=== PATIENT | male | born 1975 | race Caucasian/White ===

== ENCOUNTER 2019-06-06 06:50 | Day surgery (SDC) | payer OTHER ==
[~2019-06-06 06:50] MED LIST: ACETAMINOPHEN 325 MG TABLET (FP) PO PRN; OFLOXACIN 0.3% OPHTHALMIC SOLUTION 5 ML BOTTLE OP SCH; TOBRAMYCIN/DEXAMETHASONE OPHTH. OINTMENT 1 TUBE TP ONE
[2019-06-06] MEDS ORDERED: LIDOCAINE HCL 1% EPINEPHRINE 1:200,000 30 ML VIAL (PF) ONE (07:14)
[2019-06-06] MEDS ORDERED: TETRACAINE 0.5% OPHTH SOLN 2 ML BOTTLE ONE (07:25)
[2019-06-06] MEDS ORDERED: LIDOCAINE 1%-EPI 1:100,000 30 ML MDV IJ ONE (07:42)
[2019-06-06] MEDS ORDERED: OFLOXACIN 0.3% OPHTHALMIC SOLUTION 5 ML BOTTLE ONE (10:25)
[2019-06-06] MEDS ORDERED: BUPIVACAINE HCL/PF 0.75% 10 ML VIAL ONE (12:17)
[2019-06-06] MEDS ORDERED: LIDOCAINE HCL/PF 1% SDV 5ML VIAL ONE (12:17)
[2019-06-06] MEDS ORDERED: TOBRAMYCIN/DEXAMETHASONE OPHTH. OINTMENT 1 TUBE TP ONE (12:29)
[2019-06-06] MEDS ORDERED: PROPOFOL 20 ML ONE (12:33)
[2019-06-06] MEDS ORDERED: LIDOCAINE HCL 1% PRESERVATIVE FREE - 30ML VIAL NR ONE (12:34)
[2019-06-06] MEDS ORDERED: BUPIVACAINE HCL/PF 0.75% 10 ML VIAL NR ONE (12:34)
[2019-06-06] MEDS ORDERED: POVIDONE-IODINE 5% OPHTHALMIC PREP 30 ML SOLUTION OD ONE (12:35)
[2019-06-06] MEDS ORDERED: BSS (NA/CA/MG/K) BALANCED SALT SOLUTION OPHTH SOLN 15 ML BOTTLE OD ONE (12:46)
[2019-06-06] MEDS ORDERED: TOBRAMYCIN/DEXAMETHASONE OPHTH. OINTMENT 1 TUBE ONE (13:26)
[2019-06-06 13:47] VITALS: TEMP 97.8
[2019-06-06 14:13] VITALS: BP 127/78; PULSE 58
--- NOTE | 2019-06-06 20:43 | OP ---
DATE OF OPERATION: 06/06/2019 PREOPERATIVE DIAGNOSIS: Corneal/conjunctival scarring and symblepharon, right eye. POSTOPERATIVE DIAGNOSIS: Corneal/conjunctival scarring and symblepharon, right eye. PROCEDURE: Superficial keratectomy and repair of symblepharon, right eye. ANESTHESIA: Peribulbar/modified van Lint/MAC. COMPLICATIONS: None. PROCEDURE: The patient was brought in to the operating room and correctly identified along with the operative site. He was then given a peribulbar block under sedation with 5 mL of a 1:1 mixture of 2% lidocaine and 0.75% bupivacaine. Then 3 mL of the same mixture was given as a modified van Lint eyelid block. The eye was then prepped and draped in the usual sterile fashion, including 5% Betadine solution in the conjunctival sac and an eyelid drape. Tegaderm was placed on the eyelashes and an eyelid speculum was attempted to be placed; however, due to the significant superior conjunctival scarring/symblepharon, the lid speculum would not fit in a centered position. The lid speculum was moved temporally to allow some exposure to the patient's cornea. The eye was inspected and topical lidocaine 1% with epinephrine was given for hemostasis. The cornea was noted to be almost completely vascularized, with areas of symblepharon most significant in superior bulbar conjunctiva to the superior tarsal conjunctiva. The corneal vascularization was then bluntly dissected using a combination of Sadaf scissors, Colibri forceps, as well as a 57 blade. This process was initiated infratemporally and the cornea was cleared here until the limbus. The same process was then carried out superonasally and then finally superiorly. There was a significant amount of superior scarring noted; however , eventually the limbus was exposed for 360 degrees. The cornea was then polished using a combination of 57 blade as well as Sadaf scissors. There was still a significant amount of corneal scarring noted at the end; however, a visualization of the patient's pupil and lens was possible. An attempt to free the superior symblepharon was made, but this was only accomplished for about 1- 2 mm. amniotic membrane was then placed over the entire exposed area. This was secured in place initially with four 10-0 nylon sutures in the corners and then as well with 5 partial thickness scleral interrupted sutures at the limbus. At the end of the procedure, the eye was noted to be somewhat more mobile, the amniotic membrane in good position and covering the patient's cornea as well as areas of recently exposed conjunctival. Topical TobraDex ointment was placed as well as an eye patch, and the patient was discharged from the operating room in a stable condition. SHWETA ZABALA M.D. VICTOR [id number] MTDD
--- NOTE | 2019-06-08 16:34 | PATH ---
Surgical Pathology Report Patient Name: ALVARO AGUILLON Med. Rec. #: [id number] /Age/Gender: 1975 (Age: 43) / M Account: [id number] Location: [facility] SUR[facility] Taken: 06/06/2019 Received: 06/06/2019 Reported: 06/08/2019 Physicians: Tyshawn Mckinley M.D. Specimen(s) Received CORNEAL SCARRING, RIGHT EYE Clinical History Corneal opacity right eye Final Diagnosis CORNEAL SCARRING, RIGHT, EYE, SUPERFICIAL KERATECTOMY AND SYMBLEPHARON REPAIR: SQUAMOUS MUCOSA WITH DENSE STROMAL FIBROSIS CONSISTENT WITH CORNEAL SCAR. Electronically Signed Jazzy Olguin M.D. Gross Description Received in formalin, labeled "corneal scarring right eye" are 3 inman, irregular portions of soft tissue ranging from 0.1-0.3 cm. in greatest dimension. The specimens are submitted in toto in one cassette. /06/07/2019 saudi06/07/2019
== END 2019-06-06 14:14 | disposition home or self-care (01) ==
LOC: JASU-SURG 06:50
PROVIDERS: ATTEND Ophthalmology
PROC: 08B9XZZ Excision of Left Cornea, External Approach (ICD-10-PCS; 2019-06-06)
PROC: 08N Eye, Release (ICD-10-PCS; principal; 2019-06-06 12:00)
DX: H11.241 Scarring of conjunctiva, right eye (principal); H11.231 Symblepharon, right eye
CPT/HCPCS: 88304-TC